=== PATIENT | male | born 1975 ===

== ENCOUNTER 2020-05-16 06:52 | Emergency (ER) | payer SELFPAY ==
[2020-05-16 06:57] VITALS: BP 126/88; PULSE 92; RESP 18; TEMP 98.2
--- NOTE | 2020-05-16 07:19 | ED ---
General Adult HPI - General Chief complaint: Extremity Problem,Nontraumatic Stated complaint: Pain in both arms Source: patient Mode of arrival: ambulatory Limitations: no limitations - History of Present Illness Initial comments: 44-year-old male with a past medical history of carpal tunnel in the bilateral wrists presents to the emergency department for a chief complaint of wrist pain. Patient reports that he was diagnosed with carpal tunnel 5 months ago. [place] surgery scheduled for 3 weeks from now for a release. Patient states that he is still in this state for work for 2 more weeks. Patient states he has been doing everything he can for the pain. States he has been taking Motrin and Tylenol [id number] and using wrist splints. He has also been taking gabapentin. States that he cannot sleep because of the constant pain in his wrists. States that sometimes it makes the first 3 fingers tingle. Patient states he is here because he needs something more for pain until his surgery.Patient has no other complaints at this time including shortness of breath, chest pain, abdominal pain, nausea or vomiting, headache, or visual changes. - Related Data Previous Rx's Medication Instructions Recorded HYDROcodone/APAP 5-325MG [[place] 1 tab PO Q6HR PRN #10 tab 05/16/20 5-325] Allergies Allergy/AdvReac Type Severity Reaction Status Date / Time amoxicillin Allergy Rash/Hives Verified 05/16/20 06:58 tramadol [From Ultram] Allergy Swelling Verified 05/16/20 06:58 Review of Systems ROS Statement: Those systems with pertinent positive or pertinent negative responses have been documented in the HPI. ROS Other: All systems not noted in ROS Statement are negative. Past Medical History Additional Past Medical History / Comment(s): Carpal tunnel bilateral wrist History of Any Multi-Drug Resistant Organisms: None Reported Past Surgical History: No Surgical Hx Reported Past Psychological History: No Psychological Hx Reported Smoking Status: Never smoker Past Alcohol Use History: Rare Past Drug Use History: None Reported General Exam - General Exam Comments Initial Comments: Right upper extremity: Patient has 2+ radial pulse, capillary refill less than 2 seconds. Sensation intact throughout the right hand. Full range of motion and full strength in the right hand. Patient able to make Ok sign, flex and extend wrist, and abduct/adduct fingers. Positive Tinel sign Left upper extremity: Patient has 2+ radial pulse, capillary refill less than 2 seconds. Sensation intact throughout the left hand. Full range of motion and full strength in the left hand. Patient able to make Ok sign, flex and extend wrist, and abduct/adduct fingers. Positive Tinel sign Limitations: no limitations General appearance: alert, in no apparent distress Head exam: Present: atraumatic, normocephalic, normal inspection Eye exam: Present: normal appearance, PERRL, EOMI. Absent: scleral icterus, conjunctival injection, periorbital swelling ENT exam: Present: normal exam, mucous membranes moist Neck exam: Present: normal inspection, full ROM. Absent: tenderness, meningismus, lymphadenopathy Respiratory exam: Present: normal lung sounds bilaterally. Absent: respiratory distress, wheezes, rales, rhonchi, stridor Cardiovascular Exam: Present: regular rate, normal rhythm, normal heart sounds. Absent: systolic murmur, diastolic murmur, rubs, gallop, clicks GI/Abdominal exam: Present: soft, normal bowel sounds. Absent: distended, tenderness, guarding, rebound, rigid Course Vital Signs 05/16/20 06:53 Temperature 98.2 F Pulse Rate 92 Respiratory 18 Rate Blood Pressure 126/88 O2 Sat by Pulse 100 Oximetry Medical Decision Making - Medical Decision Making Vitals are stable. Patient is well appearing. Patient has a history of carpal tunnel. States his symptoms are worsening. He is scheduled for surgery in 3 weeks but is [place] of state. Has been doing conservative treatment but is unable to sleep. I did offer patient Toradol and he reports that he had Motrin prior to arrival that is not month this. Patient states he is ALLERGIC to tramadol and Tylenol 3 makes him itchy. I did agree to give patient a small prescription of [place] for this pain as he is unable to see his original physician as he is out of state. MAPS was performed which did not show any Rx. Patient was notified to not drive or work while taking this. Will return for any worsening s ymptoms. Disposition Clinical Impression: Bilateral wrist pain, Hx of carpal tunnel syndrome Disposition: HOME SELF-CARE Condition: Good Instructions (If sedation given, give patient instructions): Paresthesia (ED) Additional Instructions: Please take Motrin and Tylenol throughout the day for pain. If pain is severe or you are not working or driving you may take [place]. Please follow-up with your surgeon. Return for any worsening symptoms. Prescriptions: HYDROcodone/APAP 5-325MG [[place] 5-325] 1 tab PO Q6HR PRN #10 tab PRN Reason: Pain Is patient prescribed a controlled substance at d/c from ED?: No Referrals: Nonstaff,Physician [Primary Care Provider] - 1-2 days Time of Disposition: 07:17
== END 2020-05-16 07:25 | disposition home or self-care (01) ==
LOC: EC 06:52
DX: G56.03 Carpal tunnel syndrome, bilateral upper limbs (principal); Z79.1 Long term (current) use of non-steroidal anti-inflammatories (NSAID); Z79.899 Other long term (current) drug therapy; Z88.0 Allergy status to penicillin; Z88.5 Allergy status to narcotic agent
CPT/HCPCS: 99282